=== PATIENT | female | born 1935 | race Caucasian/White ===

== ENCOUNTER 2018-07-12 09:56 | Observation (INO) | payer MEDICARE ==
[~2018-07-12 09:56] MED LIST: Ondansetron PF 4 MG/2 ML Vial ONE; PROPOFOL 200 MG/20 ML VIAL ONE
[2018-07-12] MEDS ORDERED: Ondansetron PF 4 MG/2 ML Vial ONE ×2 (10:37→16:37)
[2018-07-12] MEDS ORDERED: Morphine 4 MG/ML VIAL ONE ×2 (10:38→11:33)
[2018-07-12 10:54] LABS: #Basophils 0.1 thou/uL (0.0-0.2); #Eosinphils 0.3 thou/uL (0.0-0.7); #Lymphocytes 1.3 thou/uL (1.20-3.40); #Monocytes 0.4 thou/uL (0.11-0.59); #Neutrophils 4.9 thou/uL (1.40-6.50); %Basophils 1.2 % (0.0-1.0); %Lymphocytes 18.3 % (21.0-51.0); %Monocytes 6.3 % (0.0-10.0); %Neutrophils 70.2 % (42.0-75.0); Hemoglobin 13.7 g/dL (12.0-16.0); Mean Corpuscular HGB CONC 33.2 g/dL (32.0-36.0); Mean Corpuscular Hemoglobin 30.5 pg (27.0-31.0); Mean Corpuscular Volume 91.7 fL (78.0-98.0); Mean Platelet Volume 6.9 fL (7.4-10.4); Platelet Count 213 thou/uL (130-400)
[2018-07-12 10:58] LABS: PTT 31.4 SEC (22.9-36.1)
[2018-07-12] MEDS ORDERED: Gentamicin Sulfate 300 MG in Sodium Chloride 0.9% 100 ML IVPB SCH (11:00)
--- NOTE | 2018-07-12 11:07 | RAD ---
RIGHT ELBOW RADIOGRAPHS 4 VIEWS: DATE: 07/12/2018. PROVIDED CLINICAL HISTORY: Right elbow pain status post injury. FINDINGS: There is a conspicuously distracted olecranon fracture. Associated soft tissue gas suggests open fra cture. Nondisplaced fracture involving the lateral humeral epicondyle is also suspected. No additio nal fracture is evident. IMPRESSION: 1. Olecranon and distal humeral fractures. 2. Soft tissue gas, suspicious for open fracture. POS: [facility]
[2018-07-12 11:13] LABS: ALT (SGPT) 31 U/L (8-55); AST (SGOT) 22 U/L (5-34); Albumin 4.3 g/dL (3.4-4.8); Alkaline Phosphatase 132 U/L (40-150); Anion Gap 14 mmol/L (10-20); BUN (Urea Nitrogen) 15 mg/dL (9.8-20.1); Bilirubin, Total 0.3 mg/dL (0.2-1.2); Calc. Creatinine Clearance 0 mL/min (70-130); Calcium 9.8 mg/dL (7.8-10.44); Carbon Dioxide 23 mmol/L (23-31); Chloride 105 mmol/L (98-107); Estimated GFR-MDRD 67; Globulin 2.9 g/dL (2.4-3.5); Glucose 107 mg/dL (83-110); Potassium 4.9 mmol/L (3.5-5.1); Protein, Total 7.2 g/dL (6.0-8.3); Sodium 137 mmol/L (136-145)
--- NOTE | 2018-07-12 11:17 | CT ---
CT BRAIN: DATE: 07/12/2018. PROVIDED CLINICAL HISTORY: Fall. FINDINGS: The ventricular system appears normal in size and morphology. There is no evidence for intracranial hemorrhage or mass effect. The extracranial soft tissues and osseous structures demonstrate an unrem arkable CT appearance. IMPRESSION: No evidence for intracranial hemorrhage or mass effect. POS: [facility]
--- NOTE | 2018-07-12 11:19 | CT ---
CT CERVICAL SPINE: DATE: 07/12/2018. PROVIDED CLINICAL HISTORY: Fall. FINDINGS: There is no evidence for fracture or traumatic subluxation. Cervical degenerative subluxation. Cerv ical degenerative changes are seen. No prevertebral soft tissue swelling apparent. The visualized l cheryl apices appear clear. Soft tissue gas is seen likely on an iatrogenic basis. IMPRESSION: No evidence for a fracture or traumatic subluxation. POS: [facility]
--- NOTE | 2018-07-12 11:23 | CT ---
MAXILLOFACIAL CT WITHOUT CONTRAST: HISTORY: Right elbow pain. Mechanical fall. The patient hit her face and reports nose bleeding. COMPARISON: None. TECHNIQUE: Maxillofacial CT is performed in the axial plane. Reformatted images are submitted for interpretation . FINDINGS: Visualized brain parenchyma gzzvzvimqloh-ddr-nxluvwniimf atrophy. Bilateral ocular lenses are appropriately located. Both globes are intact. Retrobulbar fat is prese rved. Adequate aeration of the sinuses and mastoid air cells. Calvarium is intact. Visualized oral cavity is unremarkable. Midline fatty raphae of the tongue is preserved. Epiglottis has a normal caliber. No prevertebral soft tissue swelling. Symmetric attenuation of the sternocleidomastoid muscles. Appropriate attenuation of the parotid and submandibular glands. Visualized upper cervical spine is intact. No fracture. Zygomatic arches are intact. Pterygoid plates are intact. No evidence of a maxilla or mandible fracture. Osseous margins of the sinuses and orbits are maintained. Bilaterally, osteomeatal complexes are pat ent. Intact and midline nasal septum. Cedar bullosa of both superior turbinates is noted. IMPRESSION: No evidence of a maxillofacial fracture. POS: [facility]
[2018-07-12] MEDS ORDERED: Adacel (T-DAP) 0.5 ML SYRINGE ONE (11:30)
[2018-07-12] MEDS ORDERED: diphenhydrAMINE 50 MG/ML VIAL ONE (11:48)
--- NOTE | 2018-07-12 11:50 | RAD ---
CHEST 1 VIEW: HISTORY: Preoperative exam. COMPARISON: None. FINDINGS: Normal cardiac silhouette. The pulmonary vessels and hilum are normal. Cardiac silhouette are clear . No consolidation or mass. No pneumothorax or osseous abnormalities. IMPRESSION: No acute cardiopulmonary process. POS: [facility]
--- NOTE | 2018-07-12 12:10 | CON ---
DATE OF CONSULTATION: HISTORY OF PRESENT ILLNESS: We were asked by Trauma in the ER to see the patient. The patient was in her normal state of health this morning. She had on some different shoes. She caught her foot. No loss of consciousness. Fell, fracturing her right elbow and landing on her face. She is quite humorous about it. She does not know how it happened, but family is at her bedside and she is in good spirits. She does have significant amount of pain in that right elbow. She did have an odd sensation when she initially fell and broke it, but sensations have eased and she is able to move and feel all her digits in her arm. PAST MEDICAL HISTORY: Positive for thyroid and glaucoma. SURGERIES: Bilateral knee, couple fracture arms on the left, appendix, gallbladder, hysterectomy, tonsils, adenoids. FAMILY HISTORY: Healthy. SOCIAL HX: Lives alone, No ETOH, Nicotine or Illicit Drugs ALLERGIES: KEFLEX, SULFA. CURRENT MEDICATIONS: 1. Glaucoma drops. 2. Thyroid. REVIEW OF SYSTEMS: The patient is very healthy. She sees her doctor about every 6 months. She has no cardiac or lung issues. She occasionally has UTIs, but has not had one for sometime and her only main complaint currently is right elbow pain. Rest of review of systems is negative. PHYSICAL EXAMINATION: GENERAL: Well-nourished, well-developed female, resting in bed with family at bedside. Speech is clear. Affect pleasant. Answers questions appropriately. She is alert and oriented x3. HEENT: Normal exam with the exception of her nose is mildly swollen and starting to have some ecchymosis around the area. NECK: Supple. Trachea midline. PELVIS: No pain with rocking. RESPIRATORY: No distress. Breathing comfortably. EXTREMITIES: Upper extremities, they both are equal size, shape, symmetry, normal bulk and tone. Movements are limited on the right. Her right elbow is already splinted and wrapped, but per ER it was open. Pulses, sensation of her extremities are intact. Bilateral lower extremities, equal size, shape, symmetry, normal bulk and tone. DP and PT pulses intact. ASSESSMENT: Ground level fall with ensuing right elbow fracture, open. PLAN: I spoke with patient and family. This needs to be fixed. Plan is to do an open reduction and internal fixation. We may take out that bone fragments to secure the triceps down. The procedure has been explained to the patient. They are happy with the plan as was the family. We will get her set up. Trauma is admitting her to the hospital and we will get her on the surgical schedule as she has had a small little coffee cake for breakfast and have a cup of coffee and otherwise has no other complaints. They are happy with the plan and ready to go forward with above surgery. Job ID: [id number] [facility]
[2018-07-12] MEDS ORDERED: traMADol HCl 50 MG TAB PO PRN (12:14)
[2018-07-12] MEDS ORDERED: traMADol HCl 50 MG TAB PO SCH ×2 (12:15→12:45)
[2018-07-12] MEDS ORDERED: Acetaminophen 500 MG TAB PO SCH ×2 (12:15→12:45)
[2018-07-12] MEDS ORDERED: Dextrose 50% Abboject 50 ML SYRINGE SLOW IVP PRN (12:22)
[2018-07-12] MEDS ORDERED: Dextrose 5% in Water 1,000 ML IV PRN (12:22)
[2018-07-12] MEDS ORDERED: Ondansetron ODT 4 MG TAB PO PRN (12:25)
[2018-07-12] MEDS ORDERED: Ondansetron PF 4 MG/2 ML Vial IVP PRN (12:25)
[2018-07-12] MEDS ORDERED: hydrALAZINE 20 MG/ML VIAL SLOW IVP PRN (12:25)
[2018-07-12] MEDS ORDERED: CEFAZOLIN 2 GM/50 ML BAG ONE (12:46)
--- NOTE | 2018-07-12 13:05 | HP ---
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 She denies being dizzy before falling. The patient states she landed face first and onto her right arm. She reported immediate pain to the right elbow with an obvious open wound. The patient received IV antibiotics and pain medication in the ER. The patient did have a localized reaction to the vancomycin,which included a localized rash to the left arm where the IV was placed. The patient also complained of burning at the IV site with the vancomycin. The patient was given Benadryl IV in the ER. The patient also complained of burning at that time but improved. Site was flushed and was patent and not infiltrated , but left arm remained slightly red. The patient denied any shortness of breath, itching or rash anywhere else. PAST MEDICAL HISTORY: Hypothyroidism, glaucoma PAST SURGICAL HISTORY: Bilateral knee surgeries, hysterectomy, appendectomy cholecystectomy, tonsillectomy and adenoidectomy as a child. MEDICATIONS: 1. Vitamins, which consists of iron, vitamin D, magnesium. 2. Melatonin 10 mg. 3. Progesterone 50 mg p.o. daily. 4. Estradiol 1 mg p.o. daily. 5. Synthroid 88 mcg p.o. daily. ALLERGIES: CEPHALEXIN, KEFLEX, SULFA. REVIEW OF SYSTEMS: GENERAL: Denies any fever, chills, or recent illness. SKIN: Open wound to right elbow. HEAD, EYES, EARS, NOSE, THROAT: Abrasion to the nose, dried blood in the nose. NECK: Denies any neck pain, Full ROM, CARDIAC: Denies any cardiac history, any chest pain, shortness of breath prior to the event. RESPIRATORY: Denies any recent cough or wheezing. GI: Normal appetite. Denies nausea or vomiting. Last bowel movement yesterday. The patient last ate a small amount of coffee cake and coffee at 7:45 this morning. URINARY: Denies any frequency, urgency, or dysuria. MUSCULOSKELETAL: Reports pain to right elbow. Otherwise, moves all extremities. NEUROLOGIC: No loss of sensation, numbness, or tingling. PHYSICAL EXAMINATION: GENERAL: Appropriate for age. No distress. VITAL SIGNS: Blood pressure 173/78, respirations 16, SpO2 of 99% on room air, temperature 98.2. SKIN: Small abrasion to the nose. Right arm is bandaged, unable to assess the wound. HEAD: Dried blood from the nose, small abrasion to nose otherwise atraumatic. NECK: Nontender. Trachea is midline. Denies posterior tenderness. Full ROM. MOUTH: Teeth fit together. No obvious injury. CARDIOVASCULAR: Regular rate and rhythm. No murmurs, rubs, or gallops. RESPIRATORY: Chest is symmetrical. Regular respirations. No wheezes, rales, or crackles. ABDOMEN: Soft, nontender with active bowel sounds. MUSCULOSKELETAL: Moves all extremities. Positive distal pulses. Open right elbow fracture with bandage in place and immobilized. NEUROLOGIC: Cranial nerves intact. Positive sensation and strength. LABORATORY DATA: WBC 7.0, RBC 4.5, hemoglobin 13.7, hematocrit 41.2, platelet count 213. Sodium 137, potassium 4.9, chloride 105, CO2 of 23, BUN 15, creatinine 0.82, glucose 107, calcium 9.8, total bilirubin 0.3, AST 22, ALT 31, alkaline phosphate 132, BNP 40, serum protein 7.2, albumin 4.3, globulin 2.9. DIAGNOSTIC DATA: Elbow x-ray, soft tissue gas suspicious for an open fracture, distal humerus fracture and olecranon. Brain CT, no evidence for intracranial hemorrhage or mass effect. Facial bones CT and cervical spine CT, no evidence of maxilla or mandible fracture. No evidence of traumatic subluxation. Chest x-ray, no acute cardiopulmonary process. ASSESSMENT: 1. Acute traumatic pain status post mechanical fall. 2. Open right elbow fracture. PLAN: Keep right arm immobilized. The patient will go to the OR today, n.p.o. now. Manage patient's pain. PT and OT consult start after surgery. Continue IV antibiotics, Plan for 24 hour IV antibiotics. Discussed with the patient and family DNR status, and patient is requested do not resuscitate. The patient has been discussed with the attending surgeon. Job ID: [id number] [facility]
[2018-07-12] MEDS ORDERED: Lidocaine 2% Jelly 5 ML TUBE ONE (15:09)
[2018-07-12] MEDS ORDERED: Fentanyl 100 MCG/2 ML VIAL ONE ×3 (15:09→20:15)
[2018-07-12] MEDS ORDERED: HYDROmorphone 0.5 MG/0.5 ML SYRINGE ONE (16:36)
[2018-07-12] MEDS ORDERED: Bupivacaine HCl 0.5%/Epinephrine 1:200,000/PF 30 ml Vial ONE (16:59)
[2018-07-12] MEDS ORDERED: Bupivacaine PF 0.5% 30 ML VIAL ONE (16:59)
[2018-07-12] MEDS ORDERED: Ondansetron HCl/PF 4 MG/2 ML Vial IVP PRN (19:34)
[2018-07-12] MEDS ORDERED: Promethazine HCl 25 MG/ML VIAL SLOW IVP PRN (19:34)
[2018-07-12] MEDS ORDERED: Promethazine HCl 25 MG/ML VIAL IM PRN (19:34)
[2018-07-12] MEDS: CEFAZOLIN 2 GM/50 ML BAG IVPB SCH (23:05)
[2018-07-12] MEDS: traMADol HCl 50 MG TAB PO SCH (23:09)
[2018-07-12] MEDS: Acetaminophen 500 MG TAB PO SCH (23:10)
[2018-07-12] MEDS: Ketorolac Tromethamine 30 MG/ML VIAL IVP SCH (23:11)
[2018-07-13] MEDS: Sodium Chloride 0.9% 1,000 ML IV SCH ×2 (00:47→02:49)
[2018-07-13] MEDS: Acetaminophen 500 MG TAB PO SCH ×3 (00:49→14:27)
[2018-07-13] MEDS: Ketorolac Tromethamine 30 MG/ML VIAL IVP SCH ×2 (00:49→06:08)
[2018-07-13] MEDS: traMADol HCl 50 MG TAB PO SCH ×3 (00:49→14:27)
[2018-07-13 01:28] VITALS: BMI 23.6
[2018-07-13] MEDS ORDERED: Levothyroxine Sodium 125 MCG TAB PO SCH (06:00)
[2018-07-13] MEDS: CEFAZOLIN 2 GM/50 ML BAG IVPB SCH ×2 (06:09→14:28)
[2018-07-13 06:30] LABS: #Eosinphils 0.1 thou/uL (0.0-0.7); #Lymphocytes 1.4 thou/uL (1.20-3.40); #Neutrophils 6.4 thou/uL (1.40-6.50); %Basophils 0.4 % (0.0-1.0); %Lymphocytes 15.3 % (21.0-51.0); %Monocytes 10.9 % (0.0-10.0); %Neutrophils 72.3 % (42.0-75.0); Hemoglobin 11.6 g/dL (12.0-16.0); Mean Corpuscular Hemoglobin 29.9 pg (27.0-31.0); Mean Corpuscular Volume 90.7 fL (78.0-98.0); Mean Platelet Volume 6.5 fL (7.4-10.4); Platelet Count 178 thou/uL (130-400); RBC Distribution Width 11.7 % (11.5-14.5); Red Blood Cell (RBC) Count 3.86 mill/uL (4.20-5.40); White Blood Cell (WBC) Count 8.8 thou/uL (4.8-10.8)
[2018-07-13 06:47] LABS: Anion Gap 11 mmol/L (10-20); BUN (Urea Nitrogen) 14 mg/dL (9.8-20.1); Calc. Creatinine Clearance 50 mL/min (70-130); Calcium 8.6 mg/dL (7.8-10.44); Carbon Dioxide 24 mmol/L (23-31); Chloride 107 mmol/L (98-107); Estimated GFR-MDRD 61; Glucose 113 mg/dL (83-110); Phosphorus 3.4 mg/dL (2.3-4.7); Potassium 4.1 mmol/L (3.5-5.1); Sodium 138 mmol/L (136-145)
--- NOTE | 2018-07-13 07:22 | CON ---
DATE OF CONSULTATION: 07/12/2018 HISTORY OF PRESENT ILLNESS: Ms. Chow is a pleasant 82-year-old female, right- hand dominant, status post fall from ground level on to the right elbow. The patient has bruising blood with a small 1 to 2 mm focal, consistent with a grade 1 open fracture. The patient is resting comfortably in bed. PAST MEDICAL HISTORY: Includes hypothyroidism. The patient is single, recently lost her 5 months ago. She lives at home alone[place] The patient's main complaint is right elbow pain. PHYSICAL EXAMINATION: GENERAL: Alert and oriented female, in no acute distress. EXTREMITIES: Right upper extremity shows bleeding from her small poke hole. She is neurovascularly intact distally. 2+ radial pulse. DIAGNOSTIC DATA: Radiographs show an olecranon fracture near the bare spot with the remnant of reduction of the joint. IMPRESSION: Open olecranon fracture, grade 1. ASSESSMENT AND PLAN: I discussed with the family the risks and benefits of open reduction and internal fixation versus triceps advancement for her elbow. Given the patient's age, I am concerned about the bone being able to withstand the screw fixation, I feel like the soft tissue repair is likely better long-term and I think she will be stable because her mid ulnar collateral ligaments would still likely be intact on their insertion on the ulna. I think, for concern about hardware exposure and potential future complications, that the triceps advancement is likely better procedure for her. I discussed the risks, benefits of the surgery to include pain, scar, bleeding, infection, damage to vital structures, decreased range of motion and strength, infection, long-term need for surgery. The patient understands these risks and benefits. The patient will be admitted overnight. She may need some help. She lives at home alone. Job ID: [id number] [facility]
[2018-07-13] MEDS ORDERED: Ibuprofen 600 MG TAB PO SCH (08:00)
[2018-07-13 12:36] VITALS: BP 128/52; TEMP 98.5
--- NOTE | 2018-07-14 11:13 | HP ---
This is an addendum to the H and P dictated by Gabby Bustillo, Trauma Nurse Practitioner for full details please see that H and P, the details of which I have confirmed with the patient. The patient was seen on morning rounds with the trauma team and is doing well. She has undergone ORIF of her open right elbow fracture and is feeling well. The pain in her arm is much better. At the time that I saw her, she has not yet worked with Physical therapy and Occupational therapy, but felt like she would be able to take care of herself at home with the help of her friend, who is coming for the weekend and her son, who will be there on Sunday. 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 She had no dizziness or other problems and landed on her right arm and face. She complains only of pain in the right arm and on her nose. She has a history of hypothyroidism and glaucoma, but is otherwise healthy. PAST SURGICAL HISTORY: She has undergone multiple surgeries in the past including appendectomy, cholecystectomy, tonsillectomy, knee surgery, and hysterectomy. MEDICATIONS: She is on, 1. Vitamins. 2. Melatonin. 3. Progesterone. 4. Estradiol. 5. Synthroid at home. ALLERGIES: HAS ALLERGIES TO KEFLEX AND SULFA. PHYSICAL EXAMINATION: Was performed personally this morning, her arm is splinted. She has normal movement and sensation in her hand with good capillary refill. She has bruising across the bridge of her nose, but is otherwise atraumatic without any abnormal findings on exam except for a mild heart murmur, which she states that she has had for years. She does not know what kind of murmur it is, but states that her research librarian told her that her heart is fine, and she just has to take antibiotics, when she has dental procedures. If the patient does well with physical therapy and occupational therapy, the plan is to discharge her home later today. Job ID: [id number]
--- NOTE | 2018-07-14 11:18 | CON ---
DATE OF CONSULTATION: HISTORY OF PRESENT ILLNESS: Ms. Chow is a pleasant 82-year-old female with open grade 1 olecranon fracture with a split into the shaft. The patient underwent I and D of her elbow with triceps advancement with ORIF of the patient's ulnar shaft split fragment. The patient was placed in a splint. She is currently resting in her bed. No acute complaints. OBJECTIVE: VITAL SIGNS: Currently are 98.2, 78 pulse, 19 respiratory rate, 94 % on room air, and blood pressure 147/66. GENERAL: Alert, oriented, no acute distress. EXTREMITIES: Focused examination of the right upper extremity shows neurovascularly intact with brisk cap refill. Palpable pulses. The patient has soft compartments. Splint clean, dry, and intact. IMPRESSION: Open grade 1 olecranon fracture status post triceps advancement repair, irrigation and drainage. The patient is to be discharged if she is comfortable and has care at home. The patient may be discharged to home with pain medications, instructions for trauma. The patient will need follow up in about two weeks, at which time discussed transition to cast vs splint. Job ID: [id number] [facility]
--- NOTE | 2018-07-14 11:38 | OP ---
DATE OF PROCEDURE: 07/12/2018 PREOPERATIVE DIAGNOSIS: Open grade 1 olecranon fracture. POSTOPERATIVE DIAGNOSIS: Comminuted open grade 1 olecranon fracture. PROCEDURES PERFORMED: 1. I and D, open fracture. 2. Open reduction and internal fixation of olecranon/triceps advancements. 3. Application of long arm splint ANESTHESIOLOGIST: Dr. Sevilla. ANESTHESIA: The patient received an LMA, received 10 mL of 0.5% Marcaine with epinephrine. TOURNIQUET TIME: 75 minutes at 250 mmHg. ANTIBIOTICS: Ancef 2 g. IMPLANTS: Two 2.7 screws and one 3.5 screw. Olecranon plate was in and out. ESTIMATED BLOOD LOSS: 100 mL. COMPLICATION: None. INDICATIONS FOR PROCEDURE: Ms. Chow is an 82-year-old female status post fall from standing height today. The patient sustained an open fracture grade 1 with bleeding. I discussed with her to perform triceps advancement, ORIF and I and D of her elbow. She understood the risks and benefits of pain, scar, bleeding, infection, nonunion, malunion, need for further surgeries, failure of procedure, continued pain despite surgical intervention, damage to vital structures, loss of life or limb. The patient understood the risks and benefits and would like to proceed. PROCEDURE NOTE: After a time out, the patient's right upper extremity as the operative site, based on site, consent and markings. After time-out, the patient's right upper extremity was prepped and draped in sterile fashion. Tourniquet was brought up to the total of 75 minutes. An incision was made now posteriorly, came down on the patient's triceps with insertion of a small piece of olecranon. There was a split that was noted in line with the ulna and a large fragment, which we lagged with two 2.7 screws. We started it. Given this, we felt that we would have to plate. We pulled out a 6-hole olecranon plate. We tried to pass. We noted that the fracture fragment and the olecranon was falling apart. There was concern that would not hold, therefore I moved back to my triceps reinsertion plan, excised the fragment, passed a locking stitch, #5 Ethibond into the triceps, passed one drill hole through on the ulnar side, passed and oversewed the medial side. I had to push a post more distally on the ulna, but had to replace it because it was directed toward the radius and was blocking motion. I placed a second post and passed another stitch. We already cut one of the running Ethibond's. We passed that into place. We then closed the fascial plane over the ulna and closed what remnants we could of the triceps to remnants of the soft tissue, but there was not any specific fragments to close. We then washed. We closed the subcu with 0 and 2-0 nylon in horizontal mattress fashion. The patient was placed in about 45 degrees of flexion in a long arm splint, which I will keep her in since she is placed her in a cast to allow soft tissue to form for stretching her out over a period of time. The patient's outlook is guarded. I am concerned about her ulna. I actually cut the ulna down to help not to be a sharp edge. The patient's elbow was not unstable. I do not think it will be unstable after this procedure, but I am concerned about potential soft tissue coverage issues. The patient will be admitted overnight. I will see her back in for 24 hours antibiotics. Job ID: [id number] [facility]
--- NOTE | 2018-07-17 10:04 | DIS ---
DATE OF ADMISSION: 07/12/2018 DATE OF DISCHARGE: 07/13/2018 CONSULTS: Orthopedic Surgery. DISCHARGE ATTENDING: Dr. Flynn. PROCEDURES: 1. On 07/12/2018, brain CT, impression, no evidence of intracranial hemorrhage or mass effect. 2. On 07/12/2018, facial bone CT, impression, no evidence of maxillofacial fracture. 3. On 07/12/2018, cervical spine CT, impression, no evidence of fracture or traumatic subluxation. 4. On 07/12/2018, chest x-ray, impression, no acute cardiopulmonary process. 5. On 07/12/2018, elbow x-ray, impression, open fracture and distal humeral fractures and olecranon. PRIMARY DIAGNOSIS: Open olecranon fracture, grade 1. SECONDARY DIAGNOSIS: Hypothyroidism. DISCHARGE MEDICATIONS: 1. Tramadol 50 mg p.o. q.6 hours for severe pain. 2. Tylenol 1000 mg p.o. q.6 hours for pain. 3. Motrin 600 mg q.8 hours p.r.n. pain. 4. Levothyroxine sodium 125 mcg p.o. daily. 5. No medications were discontinued. 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 She denies being dizzy, having palpitations or shortness of breath before falling. States she just tripped on her feet. Landing on her face and on her right arm. The patient received IV antibiotics and pain medication in the ER. The patient did have a localized reaction to the vancomycin and was given Benadryl in the ER, which resolved. The patient's pain was well controlled throughout her hospital stay. The patient went for ORIF of right elbow. The patient was restarted on her home medications. On the day of discharge, the patient was seen and evaluated. The patient had no complaints and her pain seemed to be well controlled. The patient was deemed stable for discharge home with family and friends who will be assisting her. DISPOSITION: Stable. DISCHARGE INSTRUCTIONS: 1. Location: Home. 2. Diet: Regular. 3. Activity: As tolerated. Orthopedic limitations, nonweightbearing right upper extremity. 4. We will need to follow up in 2 weeks' and transition to cast versus splint. 5. Followup with Dr. House as needed. Follow up with primary care physician, nurse practitioner as needed. 6. The patient was evaluated and examined by Dr. Flynn on the day of discharge. Job ID: [id number]
== END 2018-07-13 15:48 | disposition home or self-care (01) ==
LOC: ERS 09:56 → SJJU 12:17 → SDC 12:59 → SJJU 20:55
PROVIDERS: ADMIT Specialist; ATTEND Orthopaedic Surgery
PROC: 0PSK04Z Reposition Right Ulna with Internal Fixation Device, Open Approach (ICD-10-PCS; principal; 2018-07-12)
DX: S52.021A Displaced fracture of olecranon process without intraarticular extension of right ulna, initial encounter for closed fracture (principal); E03.9 Hypothyroidism, unspecified; H40.9 Unspecified glaucoma; Z90.49 Acquired absence of other specified parts of digestive tract; Z90.89 Acquired absence of other organs; Z90.710 Acquired absence of both cervix and uterus; Z88.1 Allergy status to other antibiotic agents; Z88.2 Allergy status to sulfonamides; Z79.891 Long term (current) use of opiate analgesic; Z79.899 Other long term (current) drug therapy; W17.89XA Other fall from one level to another, initial encounter
CPT/HCPCS: 24685; 70450; 70486; 71045; 72125; 73080; 76001; 80048; 80053; 83735; 83880; 84100; 84484; 85025 ×2; 85610; 85730; 90471; 90715; 93005; 96365; 96367; 96375 ×2; 96376 ×2; 97116; 97139; 99285; C1713 ×2; G0378; G8978; G8979; G8980; 36415; 96361; G0390; J0670; J1170; J1200; J1580; J1885; J2270; J2405; J2704; J3010; J3370; J7050; S0020

== ENCOUNTER 2018-09-17 08:44 | Outpatient (CLI) | payer MEDICARE ==
--- NOTE | 2018-09-17 09:38 | RAD ---
CHEST 2 VIEWS: Date: 09/17/18 COMPARISON: 07/12/18. HISTORY: Bronchospasm. FINDINGS: Two views of the chest show normal sized cardiomediastinal silhouette. There is no evidence of consol idation, mass, or pleural effusion. The bones are unremarkable. IMPRESSION: No evidence of acute cardiopulmonary disease. POS: [facility]
== END 2018-09-17 08:45 | disposition home or self-care (01) ==
LOC: RAD-FRANK 08:44
PROVIDERS: ATTEND Nurse Practitioner Family
DX: J98.01 Acute bronchospasm (principal)
CPT/HCPCS: 71046

== ENCOUNTER 2018-11-21 09:07 | Outpatient (CLI) | payer MEDICARE ==
--- NOTE | 2018-11-21 11:02 | BD ---
BONE DENSITOMETRY: INDICATION: An 83-year-old female for postmenopausal osteoporosis screening. FINDINGS: Lumbar Spine: BMD (g/cm2) L1 1.077 T-Score: 0.8 L2 1.197 T-Score: 1.5 L3 1.240 T-Score: 1.4 L4 1.294 T-Score: 2.1 L1-L4 1.205 T-Score: 1.4 Femoral Neck: 0.748 T-Score: -0.9 Total Femur: 1.033 T-Score: 0.7 Impression: Bone mineral density of the lumbar spine and femoral neck are both within normal range. POS: [facility]
== END 2018-11-21 09:08 | disposition home or self-care (01) ==
LOC: BICMAMMO 09:07
PROVIDERS: ATTEND Nurse Practitioner Family
DX: Z13.820 Encounter for screening for osteoporosis (principal)
CPT/HCPCS: 77080

== ENCOUNTER 2018-12-10 15:18 | Outpatient (CLI) | payer MEDICARE ==
--- NOTE | 2018-12-10 15:28 | RAD ---
Radiograph left ankle 3 views: DATE: 12/10/2018 HISTORY: 83-year-old female with ankle pain FINDINGS: Ankle mortise is congruent. Talar dome is maintained. Degenerative changes are mild. No fracture or s ubluxation. IMPRESSION: No fracture
== END 2018-12-10 15:19 | disposition home or self-care (01) ==
LOC: RAD-FRANK 15:18
PROVIDERS: ATTEND Nurse Practitioner Family
DX: M25.571 Pain in right ankle and joints of right foot (principal)